=== PATIENT | female | born 1985 | race Two or more races ===

== ENCOUNTER 2019-02-12 20:34 | Emergency (ER) | payer OTHER ==
[2019-02-12] MEDS ORDERED: Ibuprofen 600 MG Tab PO ONE (20:50)
--- NOTE | 2019-02-12 20:50 | EDM.PDOC ---
ED HPI GENERAL MEDICAL PROBLEM - General Chief Complaint: Lower Extremity Injury/Pain Stated Complaint: TOE PAIN ON RIGHT FOOT Time Seen by Provider: 02/12/19 20:39 - History of Present Illness INITIAL COMMENTS - FREE TEXT/NARRATIVE: HISTORY AND PHYSICAL: History of present illness: The patient is a healthy 33-year-old female who presents with complaints of pain at the right great toe after she fell down about 8 stairs and says that she bent her foot backwards. She did not pass out or black out and has no head neck or back pain and has no nausea or vomiting. She complains only of pain at the base of the great toe on the right foot and the other toes are without pain as is the remainder of the foot ankle leg knee and hip. Prior to these events she was in her usual state of good health with no systemic issues. Patient says she has a history of a hysterectomy and is not . She did not take any medications prior to coming here for the pain. The patient says that she thinks that she hit the left side of her face going down the stairs as there are some red redmond there but she has no pain there Review of systems: As per history of present illness and below otherwise all systems reviewed and negative. Past medical history: As per history of present illness and as reviewed below otherwise noncontributory. Surgical history: As per history of present illness and as reviewed below otherwise noncontributory. Social history: No reported history of drug or alcohol abuse. Family history: As per history of present illness and as reviewed below otherwise noncontributory. Physical exam: General: Well-developed well-nourished female who is nontoxic and vital signs are noted by me HEENT: Atraumatic, normocephalic, there are some superficial red redmond on the left side of the patient's face but there is no soft tissue swelling or palpable bony defects or deformities or tenderness of the facial bony architecture, negative for conjunctival pallor or scleral icterus, mucous membranes moist, throat clear, neck supple, nontender, trachea midline. Lungs: Clear to auscultation, breath sounds equal bilaterally, chest nontender. Heart: S1S2, regular rate and rhythm no overt murmurs Abdomen: Soft, nondistended, nontender. NABS Pelvis: Stable nontender. No lateral hip tenderness on the right Genitourinary: Deferred. Rectal: Deferred. Extremities: Atraumatic, and full range of motion of all extremities with the exception of the right foot near the great toe. There is some minimal soft tissue swelling seen at the great toe and at the M TP area with exquisite tenderness on palpation but no ecchymosis crepitus or bony deformities nor is there any malalignment appreciated. The remainder of the toes are nontender as is the proximal metatarsals cuboids talus ankle leg knee and thigh.. Neurovascular unremarkable. Neuro: Awake, alert, oriented. Cranial nerves II through XII unremarkable. Cerebellum unremarkable. Motor and sensory unremarkable throughout. Exam nonfocal. Diagnostics: X-ray right foot attention great toe Therapeutics: Motrin, ice pack, Justino tape toes, ortho boot and crutches Impression: Fracture of right great toe, proximal phalanx Definitive disposition and diagnosis as appropriate pending reevaluation and review of above. Right Toe-Hailux Pain Score (Numeric/FACES): 8 - Related Data Allergies Allergy/AdvReac Type Severity Reaction Status Date / Time Sulfa (Sulfonamide Allergy Anaphylactic Verified 02/12/19 20:43 Antibiotics) Shock Home Meds: Home Meds Trospium [Sanctura] 20 mg PO ACBRK 02/12/19 [History] Review of Systems - Review of Systems Review Of Systems: ROS reveals no pertinent complaints other than HPI. ED EXAM, GENERAL - Physical Exam Exam: See Below (See dictation) Course - Vital Signs Last Recorded V/S: Last Vital Signs Temp 36.7 C 02/12/19 20:44 Pulse 78 02/12/19 21:09 Resp 16 02/12/19 21:09 BP 124/82 02/12/19 21:09 Pulse Ox 99 02/12/19 21:09 - Orders/Labs/Meds Orders: Active Orders 24 hr Category Date Time Status Foot Comp Min 3V Rt [CR] Stat Exams 02/12/19 20:50 Taken DME for Discharge [COMM] Stat Oth 02/12/19 21:16 Ordered Meds: Medications Discontinued Medications Generic Name Dose Route Start Last Admin Trade Name Freq PRN Reason Stop Dose Admin Ibuprofen 600 mg 02/12/19 20:50 02/12/19 21:08 Motrin PO 02/12/19 20:51 600 mg ONETIME ONE Administration Departure - Departure Time of Disposition: 21:19 Disposition: Home, Self-Care 01 Condition: Good Clinical Impression: Fracture of great toe of right foot Qualifiers: Encounter type: initial encounter Fracture type: closed Phalanx: proximal Fracture alignment: nondisplaced Qualified Code(s): S92.414A - Nondisplaced fracture of proximal phalanx of right great toe, initial encounter for closed fracture - Discharge Information Referrals: Juan Sahni MD [Primary Care Provider] - Forms: ED Department Discharge Additional Instructions: The following information is given to patients seen in the emergency department who are being discharged to home. This information is to outline your options for follow-up care. We provide all patients seen in our emergency department with a follow-up referral. The need for follow-up, as well as the timing and circumstances, are variable depending upon the specifics of your emergency department visit. If you don't have a primary care physician on staff, we will provide you with a referral. We always advise you to contact your personal physician following an emergency department visit to inform them of the circumstance of the visit and for follow-up with them and/or the need for any referrals to a consulting specialist. The emergency department will also refer you to a specialist when appropriate. This referral assures that you have the opportunity for followup care with a specialist. All of these measure are taken in an effort to provide you with optimal care, which includes your followup. Under all circumstances we always encourage you to contact your private physician who remains a resource for coordinating your care. When calling for followup care, please make the office aware that this follow-up is from your recent emergency room visit. If for any reason you are refused follow-up, please contact the [facility] emergency department at and ask to speak to the emergency department charge nurse. Dr Ambar Braga [address] [place] [id number] Ice and elevate the area and use [id number] Tylenol and ibuprofen as needed for pain management. You may also use a stronger pain medication you have been prescribed as needed for sleep and when you were at home. Do not weight-bear and use crutches and ortho boot at all times loosening or removing the ortho boot at sleep times. Please connect with our local rough planer tender with resources given to above for further care and evaluation. Return to ER as needed and as discussed - My Orders Last 24 Hours: My Active Orders 02/12/19 20:50 Foot Comp Min 3V Rt [CR] Stat 02/12/19 21:16 DME for Discharge [COMM] Stat - Assessment/Plan Last 24 Hours: My Active Orders 02/12/19 20:50 Foot Comp Min 3V Rt [CR] Stat 02/12/19 21:16 DME for Discharge [COMM] Stat
--- NOTE | 2019-02-12 21:20 | CR ---
INDICATION: Fall, great toe injury TECHNIQUE: Foot radiograph 3 views right COMPARISON: None FINDINGS: Bone: There is nondisplaced oblique fracture present involving both the proximal and distal articular surfaces of the 1st proximal phalanx. Joint: The visualized hindfoot, midfoot, and forefoot joints are unremarkable in appearance. No significant ankle effusion is seen. Soft tissue: Unremarkable. No radiopaque foreign bodies are seen. IMPRESSION: 1. There is nondisplaced oblique fracture present involving both the proximal and distal articular surfaces of the 1st proximal phalanx. Dictated by Leonard Tena MD @ 02/12/2019 9:18:16 PM Dictated by: Leonard Tena MD @ 02/12/2019 21:18:24 (Electronically Signed)
== END 2019-02-12 21:38 | disposition home or self-care (01) ==
LOC: MW.ED 20:34
DX: S92.414A Nondisplaced fracture of proximal phalanx of right great toe, initial encounter for closed fracture (principal); Z88.2 Allergy status to sulfonamides; W10.9XXA Fall (on) (from) unspecified stairs and steps, initial encounter; X50.1XXA Overexertion from prolonged static or awkward postures, initial encounter
CPT/HCPCS: 73630; 99283; A9270

== ENCOUNTER 2019-02-25 06:42 | Day surgery (SDC) | payer OTHER ==
[2019-02-24 10:21] LABS: BLOOD UREA NITROGEN,BUN 13 mg/dL (7.0-18.0); CARBON DIOXIDE,CO2 28.7 mmol/L (21.0-32.0); CHLORIDE,CL 105 mmol/L (98-107); GLUCOSE RANDOM 76 mg/dL (74-106); POTASSIUM,K 4.1 mmol/L (3.5-5.1); SODIUM,NA 140 mmol/L (136-145)
[~2019-02-25 06:42] MED LIST: Sodium Chloride 0.9% 10 ML SDV IV PRN; Sodium Chloride 0.9% 10 ML Syringe FLUSH PRN; Sodium Chloride 0.9% 2.5 ML Syringe FLUSH PRN; ceFAZolin 2 GM in Premix Bag 1 BAG IV ONE
[2019-02-25] MEDS ORDERED: fentaNYL 100 MCG/2 ML SDV ONE (07:19)
[2019-02-25] MEDS ORDERED: Lidocaine 2% 5 ML SDV ONE (07:19)
[2019-02-25] MEDS ORDERED: Propofol 200 MG/20 ML SDV ONE (07:19)
[2019-02-25] MEDS ORDERED: Midazolam 1 MG/ML 2 ML SDV ONE (07:19)
[2019-02-25] MEDS ORDERED: Rocuronium 100 MG/10 ML Syringe ONE (07:20)
[2019-02-25] MEDS: Lactated Ringers 1,000 ML IV SCH ×2 (07:21→11:36)
[2019-02-25] MEDS ORDERED: ceFAZolin/Dextrose,Iso-Osmotic 2 GM/50 ML Duplex Bag IV ONE (07:23)
[2019-02-25] MEDS ORDERED: Scopolamine 1.5 MG Transdermal Patch TRDERM PRN (07:29)
--- NOTE | 2019-02-25 07:29 | PCM.PREANE ---
Preanesthetic Assessment - Anesthesia/Transfusion/Family Hx Anesthesia History: Prior Anesthesia Reaction Other Type of Anesthesia Reaction Comment: only with first - was "treated" after that Family History of Anesthesia Reaction: No Transfusion History: No Prior Transfusion(s) Intubation History: Unknown - Review of Systems General: No Symptoms Pulmonary: No Symptoms Cardiovascular: No Symptoms Gastrointestinal: No Symptoms Neurological: No Symptoms Other: Reports: None - Physical Assessment Vital Signs: Last Vital Signs Temp 36.4 C 02/25/19 07:04 Pulse 77 02/25/19 07:04 Resp 14 02/25/19 07:04 BP 105/68 02/25/19 07:04 Pulse Ox 98 02/25/19 07:04 Height: 5 ft 2 in Weight: 71.668 kg ASA Class: 2 Mental Status: Alert & Oriented x3 Airway Class: Mallampati = 1 Dentition: Reports: Normal Dentition (braces upper and lower), Riviera(s) (x1 upper front) Thyro-Mental Finger Breadths: 3 Mouth Opening Finger Breadths: 3 ROM/Head Extension: Full Lungs: Clear to Auscultation, Normal Respiratory Effort Cardiovascular: Regular Rate, Regular Rhythm - Lab Values: Laboratory Last Values WBC 5.46 K/uL (4.0-11.0) 02/24/19 09:40 RBC 4.18 M/uL (4.30-5.90) L 02/24/19 09:40 Hgb 12.4 g/dL (12.0-16.0) 02/24/19 09:40 Hct 36.9 % (36.0-46.0) 02/24/19 09:40 MCV 88.3 fL (80.0-98.0) 02/24/19 09:40 MCH 29.7 pg (27.0-32.0) 02/24/19 09:40 MCHC 33.6 g/dL (31.0-37.0) 02/24/19 09:40 RDW Std Deviation 40.2 fl (28.0-62.0) 02/24/19 09:40 RDW Coeff of Shelby 13 % (11.0-15.0) 02/24/19 09:40 Plt Count 290 K/uL (150-400) 02/24/19 09:40 MPV 9.50 fL (7.40-12.00) 02/24/19 09:40 Nucleated RBC % 0.0 /100WBC 02/24/19 09:40 Nucleated RBCs # 0 K/uL 02/24/19 09:40 Sodium 140 mmol/L (136-145) 02/24/19 09:40 Potassium 4.1 mmol/L (3.5-5.1) 02/24/19 09:40 Chloride 105 mmol/L (98-107) 02/24/19 09:40 Carbon Dioxide 28.7 mmol/L (21.0-32.0) 02/24/19 09:40 BUN 13 mg/dL (7.0-18.0) 02/24/19 09:40 Creatinine 0.6 mg/dL (0.6-1.0) 02/24/19 09:40 Est Cr Clr Drug Dosing 105.48 mL/min 02/24/19 09:40 Estimated GFR (MDRD) > 60.0 ml/min 02/24/19 09:40 Glucose 76 mg/dL (74-106) 02/24/19 09:40 Calcium 8.4 mg/dL (8.5-10.1) L 02/24/19 09:40 HCG, Qual NEGATIVE (NEG) 02/24/19 09:40 Blood Type O POSITIVE 02/24/19 09:40 Antibody Screen NEGATIVE 02/24/19 09:40 - Allergies Allergies/Adverse Reactions: Allergies Allergy/AdvReac Type Severity Reaction Status Date / Time Sulfa (Sulfonamide Allergy Anaphylactic Verified 02/25/19 07:10 Antibiotics) Shock - Blood Blood Available: No - Anesthesia Plan Pre-Op Medication Ordered: None - Acknowledgements Anesthesia Type Planned: General Anesthesia Pt an Appropriate Candidate for the Planned Anesthesia: Yes Alternatives and Risks of Anesthesia Discussed w Pt/Guardian: Yes Pt/Guardian Understands and Agrees with Anesthesia Plan: Yes PreAnesthesia Questionnaire HEENT History: Reports: Other (See Below) Other HEENT History: has upper and lower dental braces Genitourinary History: Reports: Other (See Below) Other Genitourinary History: has only 1 kidney- congenital CUSTOM STOCK MAKER History: Reports: , Other (See Below) (cystocele) Musculoskeletal History: Reports: Fracture Other Musculoskeletal History: currently has fx right toe and right sprained ankle- is wearing a "boot" Neurological History: Reports: Other (See Below) Other Neuro History: hx of motion sickness Psychiatric History: Reports: Anxiety Other Psychiatric History: states "mild" anxiety- no medication Hematologic History: Reports: Anemia - Infectious Disease History Infectious Disease History: Reports: None - Past Surgical History Head Surgeries/Procedures: Reports: None HEENT Surgical History: Reports: Tonsillectomy GI Surgical History: Reports: Bariatric Procedure Female Surgical History: Reports: Section, LEEP Other Female Surgeries/Procedures: x3 - SUBSTANCE USE Smoking Status *Q: Never Smoker Recreational Drug Use History: No - HOME MEDS Home Medications: Home Meds Calcium Carb, Citrate/Vit D3 [Citracal + D ER] 1 tab PO DAILY 02/22/19 [History] Desogestrel-Ethinyl Estradiol [Juleber 28 Day Tablet] 1 tab PO DAILY 02/22/19 [ History] Iron 65 mg PO BID 02/22/19 [History] Multivit/Iron/Folic Acid/Hb179 [Womens Multivit Hi Potency Tab] 1 tab PO DAILY 02/22/19 [History] - CURRENT (IN HOUSE) MEDS Current Meds: Current Medications Lactated Ringer's (Ringers, Lactated) 1,000 mls @ 125 mls/hr IV ASDIRECTED [facility] Last Admin: 02/25/19 07:21 Dose: 125 mls/hr Sodium Chloride (Saline Flush) 10 ml FLUSH ASDIRECTED PRN PRN Reason: Keep Vein Open Sodium Chloride (Saline Flush) 2.5 ml FLUSH ASDIRECTED PRN PRN Reason: Keep Vein Open Sodium Chloride (Normal Saline) 10 ml IV ASDIRECTED PRN PRN Reason: IV Use Discontinued Medications Cefazolin Sodium/Dextrose (Ancef) Confirm Administered Dose 2 gm IV .STK-MED ONE Stop: 02/25/19 07:24 Fentanyl (Sublimaze) Confirm Administered Dose 100 mcg .ROUTE .STK-MED ONE Stop: 02/25/19 07:20 Cefazolin Sodium/Dextrose 2 gm (/ Premix) 50 mls @ 100 mls/hr IV ONETIME ONE Stop: 02/24/19 09:28 Lidocaine (Xylocaine-Mpf 2%) Confirm Administered Dose 5 ml .ROUTE .STK-MED ONE Stop: 02/25/19 07:20 Midazolam HCl (Versed 1 Mg/Ml) Confirm Administered Dose 2 mg .ROUTE .STK-MED ONE Stop: 02/25/19 07:20 Propofol (Diprivan 20 Ml) Confirm Administered Dose 200 mg .ROUTE .STK-MED ONE Stop: 02/25/19 07:20 Rocuronium [place] (Zemuron) Confirm Administered Dose 100 mg .ROUTE .STK-MED ONE Stop: 02/25/19 07:21
[2019-02-25] MEDS ORDERED: Octyl 2-Cyanoacrylate 1 Tube ONE (07:32)
[2019-02-25] MEDS ORDERED: Fluorescein 5 ML Vial ONE (07:32)
[2019-02-25] MEDS ORDERED: Scopolamine 1.5 MG Transdermal Patch ONE (07:33)
[2019-02-25] MEDS ORDERED: Dexamethasone 4 MG/ML 5 ML MDV ONE (08:22)
[2019-02-25] MEDS ORDERED: Metoclopramide 10 MG/2 ML SDV ONE (08:22)
[2019-02-25] MEDS ORDERED: Ondansetron 4 MG/2 ML SDV ONE (08:22)
[2019-02-25] MEDS ORDERED: HYDROmorphone 2 MG/ML Syringe ONE (08:25)
[2019-02-25] MEDS ORDERED: Meperidine PF 25 MG/ML Syringe IV PRN (08:45)
[2019-02-25] MEDS ORDERED: Promethazine 25 MG/ML SDV IM PRN ×2 (08:46→10:10)
[2019-02-25] MEDS ORDERED: fentaNYL 100 MCG/2 ML SDV IVPUSH PRN (08:46)
[2019-02-25] MEDS ORDERED: Glycopyrrolate 0.2 MG/ML SDV ONE (09:10)
[2019-02-25] MEDS ORDERED: Neostigmine Methylsulfate 1 MG/ML 5 ML Syringe ONE (09:10)
[2019-02-25] MEDS ORDERED: Belladonna Alkaloids/Opium 16.2-30 MG Supp RECTAL PRN (09:38)
[2019-02-25] MEDS ORDERED: Ketorolac 30 MG/ML SDV ONE (10:03)
[2019-02-25] MEDS ORDERED: Ondansetron 4 MG/2 ML SDV IVPUSH PRN (10:10)
[2019-02-25] MEDS ORDERED: Morphine 4 MG/ML Syringe IVPUSH PRN (10:10)
[2019-02-25] MEDS ORDERED: Acetaminophen/oxyCODONE 325-5 MG Tab PO PRN ×2 (10:10)
[2019-02-25] MEDS ORDERED: Ketorolac 30 MG/ML SDV IVPUSH ONE (10:10)
--- NOTE | 2019-02-25 10:15 | PCM.OPNOTE ---
- General Post-Op/Procedure Note Date of Surgery/Procedure: 02/25/19 Operative Procedure(s): TLH,blaespinoza sa. engectomy and Cystoscopy. Pre Op Diagnosis: bleeding Post-Op Diagnosis: Same Anesthesia Technique: General ET Tube Primary Surgeon: Luis Vargas EBL in mLs: 100 Complications: None Condition: Good
--- NOTE | 2019-02-25 10:48 | PCM.PNPP ---
- General Info Date of Service: 02/25/19 Functional Status: Reports: Pain Controlled - Review of Systems General: Reports: No Symptoms HEENT: Reports: No Symptoms Pulmonary: Reports: No Symptoms Cardiovascular: Reports: No Symptoms Gastrointestinal: Reports: No Symptoms Genitourinary: Reports: No Symptoms Musculoskeletal: Reports: No Symptoms Skin: Reports: No Symptoms Neurological: Reports: No Symptoms Psychiatric: Reports: No Symptoms - General Info Date of Service: 02/25/19 - Patient Data Vital Signs - Most Recent: Last Vital Signs Temp 36 C 02/25/19 10:22 Pulse 89 02/25/19 10:37 Resp 10 L 02/25/19 10:37 BP 117/61 02/25/19 10:37 Pulse Ox 100 02/25/19 10:37 Weight - Most Recent: 71.668 kg I&O - Last 24 Hours: Intake & Output 02/24/19 02/25/19 02/25/19 22:59 06:59 14:59 Output Total 400 Balance -400 Med Orders - Current: Current Medications Belladonna Alkaloids/Opium (B & O Supprettes No. 15a) 1 supp RECTAL ONETIME PRN PRN Reason: Pain Fentanyl (Sublimaze) 50 - 100 mcg IVPUSH Q5M PRN PRN Reason: Pain Stop: 02/25/19 11:47 Last Admin: 02/25/19 10:45 Dose: 50 mcg Lactated Ringer's (Ringers, Lactated) 1,000 mls @ 125 mls/hr IV ASDIRECTED [facility] Last Admin: 02/25/19 07:21 Dose: 125 mls/hr Ketorolac Tromethamine (Toradol) 30 mg IVPUSH Q6H PRN PRN Reason: Pain (severe 7-10) Stop: 03/02/19 10:10 Meperidine HCl (Demerol) 12.5 - 25 mg IV ONETIME PRN PRN Reason: Shivering Stop: 02/25/19 11:46 Morphine Sulfate (Morphine) 4 mg IVPUSH Q2H PRN PRN Reason: Pain (severe 7-10) Ondansetron HCl (Zofran) 4 mg IVPUSH Q6H PRN PRN Reason: Nausea/Vomiting Oxycodone/Acetaminophen (Percocet 325-5 Mg) 1 tab PO Q4H PRN PRN Reason: Pain (moderate 4-6) Oxycodone/Acetaminophen (Percocet 325-5 Mg) 2 tab PO Q4H PRN PRN Reason: Pain (moderate 4-6) Promethazine HCl (Phenergan) 12.5 mg IM ONETIME PRN PRN Reason: Nausea Promethazine HCl (Phenergan) 25 mg IM Q6H PRN PRN Reason: Nausea/Vomiting Scopolamine (Transderm-Scop) 1.5 mg TRDERM Q72H PRN PRN Reason: Nausea Last Admin: 02/25/19 07:37 Dose: 1.5 mg Sodium Chloride (Saline Flush) 10 ml FLUSH ASDIRECTED PRN PRN Reason: Keep Vein Open Sodium Chloride (Saline Flush) 2.5 ml FLUSH ASDIRECTED PRN PRN Reason: Keep Vein Open Sodium Chloride (Normal Saline) 10 ml IV ASDIRECTED PRN PRN Reason: IV Use Discontinued Medications Cefazolin Sodium/Dextrose (Ancef) Confirm Administered Dose 2 gm IV .STK-MED ONE Stop: 02/25/19 07:24 Dexamethasone (Dexamethasone) Confirm Administered Dose 20 mg .ROUTE .STK-MED ONE Stop: 02/25/19 08:23 Fentanyl (Sublimaze) Confirm Administered Dose 100 mcg .ROUTE .STK-MED ONE Stop: 02/25/19 07:20 Fluorescein Sodium (Ak-Fluor) Confirm Administered Dose 5 ml .ROUTE .STK-MED ONE Stop: 02/25/19 07:33 Glycopyrrolate (Robinul) Confirm Administered Dose 0.4 mg .ROUTE .STK-MED ONE Stop: 02/25/19 09:11 Hydromorphone HCl (Dilaudid) Confirm Administered Dose 2 mg .ROUTE .STK-MED ONE Stop: 02/25/19 08:26 Cefazolin Sodium/Dextrose 2 gm (/ Premix) 50 mls @ 100 mls/hr IV ONETIME ONE Stop: 02/24/19 09:28 Ketorolac Tromethamine (Toradol) Confirm Administered Dose 30 mg .ROUTE .STK- MED ONE Stop: 02/25/19 10:04 Ketorolac Tromethamine (Toradol) 30 mg IVPUSH ONETIME ONE Stop: 02/25/19 10:11 Lidocaine (Xylocaine-Mpf 2%) Confirm Administered Dose 5 ml .ROUTE .STK-MED ONE Stop: 02/25/19 07:20 Metoclopramide HCl (Reglan) Confirm Administered Dose 10 mg .ROUTE .STK-MED ONE Stop: 02/25/19 08:23 Midazolam HCl (Versed 1 Mg/Ml) Confirm Administered Dose 2 mg .ROUTE .STK-MED ONE Stop: 02/25/19 07:20 Neostigmine Methylsulfate (Neostigmine) Confirm Administered Dose 5 mg .ROUTE .STK-MED ONE Stop: 02/25/19 09:11 Octyl Cyanoacrylate (Dermabond Advance) Confirm Administered Dose 1 applic .ROUTE .STK-MED ONE Stop: 02/25/19 07:33 Ondansetron HCl (Zofran) Confirm Administered Dose 4 mg .ROUTE .STK-MED ONE Stop: 02/25/19 08:23 Propofol (Diprivan 20 Ml) Confirm Administered Dose 200 mg .ROUTE .STK-MED ONE Stop: 02/25/19 07:20 Rocuronium [place] (Zemuron) Confirm Administered Dose 100 mg .ROUTE .STK-MED ONE Stop: 02/25/19 07:21 Scopolamine (Transderm-Scop) Confirm Administered Dose 1.5 mg .ROUTE .STK-MED ONE Stop: 02/25/19 07:34 - Interaction Disposition, : in Room with Family Interaction: Holding Feeding: Attempted ; Nursed Fair/Poor - Exam General: Alert, Oriented HEENT: Pupils Equal Neck: Supple Lungs: Clear to Auscultation, Normal Respiratory Effort Cardiovascular: Regular Rate, Regular Rhythm GI/Abdominal Exam: Normal Bowel Sounds, Soft, Non-Tender, No Organomegaly, No Distention, No Abnormal Bruit, No Mass, Pelvis Stable Extremities: Normal Inspection, Normal Range of Motion, Non-Tender, No Pedal Edema, Normal Capillary Refill Skin: Warm, Dry, Intact Wound/Incisions: Healing Well Neurological: No New Focal Deficit Psy/Mental Status: Alert, Normal Affect, Normal Mood - Problem List Review Problem List Initiated/Reviewed/Updated: Yes - My Orders Last 24 Hours: My Active Orders 02/24/19 Dinner Nothing per Oral Now Diet [DIET] 02/25/19 10:10 Patient Status [ADT] Routine Notify Provider Vital Signs [RC] ASDIRECTED Oxygen Therapy [RC] ASDIRECTED RT Incentive Spirometry [RC] Q2HWA Up With Assistance [RC] PER UNIT ROUTINE Up ad Kelsey [RC] PER UNIT ROUTINE Urinary Catheter Removal [RC] Per Unit Routine Vital Signs [RC] PER UNIT ROUTINE Acetaminophen/oxyCODONE [Percocet 325-5 MG] 1 tab PO Q4H PRN Acetaminophen/oxyCODONE [Percocet 325-5 MG] 2 tab PO Q4H PRN Ketorolac [Toradol] 30 mg IVPUSH Q6H PRN Morphine 4 mg IVPUSH Q2H PRN Ondansetron [Zofran] 4 mg IVPUSH Q6H PRN Promethazine [Phenergan] 25 mg IM Q6H PRN Peripheral IV Discontinue [OM.PC] Routine Sequential Compression Device [OM.PC] Per Unit Routine Resuscitation Status Routine 02/25/19 10:11 Antiembolic Devices [RC] PER UNIT ROUTINE 02/25/19 Lunch Regular Diet [DIET] 02/26/19 05:11 BASIC METABOLIC PANEL,BMP [CHEM] AM CBC WITH AUTO DIFF [HEME] AM - Assessment Assessment:: S/P doing well. - Plan Plan:: send home today.
--- NOTE | 2019-02-25 10:52 | PCM.POSTAN ---
POST ANESTHESIA ASSESSMENT - MENTAL STATUS Mental Status: Alert, Oriented - VITAL SIGNS Vital Signs: Last Vital Signs Temp 36 C 02/25/19 10:22 Pulse 83 02/25/19 10:47 Resp 10 L 02/25/19 10:47 BP 114/78 02/25/19 10:47 Pulse Ox 99 02/25/19 10:47 - RESPIRATORY Respiratory Status: Respiratory Rate WNL, Airway Patent, O2 Saturation Stable - CARDIOVASCULAR CV Status: Pulse Rate WNL, Blood Pressure Stable - GASTROINTESTINAL GI Status: No Symptoms - PAIN Pain Score: 3 - POST OP HYDRATION Hydration Status: Adequate & Stable
--- NOTE | 2019-02-25 13:23 | OR ---
SURGEON: Luis Vargas MD DATE OF PROCEDURE: PREOPERATIVE DIAGNOSES: Menometrorrhagia and pelvic pain. POSTOPERATIVE DIAGNOSES: Menometrorrhagia and pelvic pain. OPERATIONS PERFORMED: Total laparoscopic hysterectomy, laparoscopic bilateral salpingectomy preserving both ovaries, and cystoscopy. PRIMARY SURGEON: Luis Vargas MD. ANESTHESIOLOGY FACULTY: OR tech. ANESTHESIA: General endotracheal intubation, Saloni Gracia and Dr. Rodriguez. ESTIMATED BLOOD LOSS: 100 mL. COMPLICATIONS: None. FINDINGS: Uterus is about 10- to 11-week size. Both ovaries essentially are normal. INDICATIONS FOR SURGERY: The reader referred to the admit note. PROCEDURE IN DETAIL: The patient was brought to the OR, properly identified. After adequate level of anesthesia, the patient was placed in lithotomy position, prepped and draped in sterile fashion as usual. Weighted speculum was placed in vagina and Cox catheter placed in the bladder for drainage and 3.5 size manipulator placed in the uterus for manipulation and then the operation shifted abdominally. Stab wound done beneath the umbilicus. The Veress needle was placed in the peritoneal cavity and that cavity insufflated with 6 L of carbon dioxide, and then the utilizing the Visiport technique, the 5 mm trocar placed infraumbilically under direct vision. A 10/12 trocar placed in the left iliac fossa and 5 mm trocar in the right iliac fossa. There were a few adhesions with the anterior abdominal wall from her previous section and that was taken down by the Harmonic scalpel without any problem. Then, the operation started by identifying the landmark of the pelvis and then the superior pedicle was coagulated and transected using the Mamadou Harmonic scalpel. The tubes included with the specimen. Both ovaries preserved. Anteriorly, the round ligament was coagulated, done in the same way, and then the anterior leaf of the broad ligament dissected downward medially detaching and the bladder completely from the operative field until the surgeon could feel the manipulator through the vaginal wall clearly. Then, the uterine vessel at the level of the manipulator coagulated and transected with the Harmonic scalpel. Next, using the Harmonic scalpel, a circular incision in the vaginal mucosa was done detaching the cervix from its attachment to the vagina. The uterus, cervix, both the ovaries were removed vaginally. Pneumoperitoneum re-established by placing vaginal pack in the vagina and then thorough irrigation of the pelvis was done. The inspection of all the pedicles was done and there were a few areas of oozing from the vaginal wall and the side of the vagina and this picked individually and the bleeding stopped by judicious use of the bipolar electrocautery. Next step, the vaginal cuff was closed laparoscopically using 2- 0 PDS interrupted sutures. While we were doing that, we asked Anesthesia to give the patient fluorescein and then cystoscopy was performed. The bladder was intact and the left ureter was visible with the dye coming from it. The right side, the patient is known to have a nonfunctioning right kidney, so there was no dye visualized on the right side. Satisfied with these findings, the procedure ended. The instrument and sponge count was correct. After closing the laparoscopic incision layer, the instrument count was correct. The patient tolerated the procedure well, went to recovery room in stable general condition. PORSHA MCKINNEY /[id number]
--- NOTE | 2019-02-25 13:30 | PCM48HPAN ---
Post Anesthesia Note - EVALUATION WITHIN 48HRS OF ANESTHETIC Vital Signs in Normal Range: Yes Patient Participated in Evaluation: Yes Respiratory Function Stable: Yes Airway Patent: Yes Cardiovascular Function Stable: Yes Hydration Status Stable: Yes Pain Control Satisfactory: Yes Nausea and Vomiting Control Satisfactory: Yes Mental Status Recovered: Yes Vital Signs: Last Vital Signs Temp 36.0 C 02/25/19 11:00 Pulse 67 02/25/19 12:30 Resp 12 02/25/19 12:30 BP 111/71 02/25/19 12:30 Pulse Ox 94 L 02/25/19 12:30
[2019-02-25] MEDS: Ketorolac 30 MG/ML SDV IVPUSH PRN ×2 (15:47→22:08)
[2019-02-26 06:33] LABS: BLOOD UREA NITROGEN,BUN 14 mg/dL (7.0-18.0); CARBON DIOXIDE,CO2 26.4 mmol/L (21.0-32.0); CHLORIDE,CL 106 mmol/L (98-107); GLUCOSE RANDOM 89 mg/dL (74-106); POTASSIUM,K 3.8 mmol/L (3.5-5.1); SODIUM,NA 139 mmol/L (136-145)
[2019-02-26] MEDS: Ketorolac 30 MG/ML SDV IVPUSH PRN (07:27)
--- NOTE | 2019-02-26 08:02 | PCM48HPAN ---
Post Anesthesia Note - EVALUATION WITHIN 48HRS OF ANESTHETIC Vital Signs in Normal Range: Yes Patient Participated in Evaluation: Yes Respiratory Function Stable: Yes Airway Patent: Yes Cardiovascular Function Stable: Yes Hydration Status Stable: Yes Pain Control Satisfactory: Yes (only having pain with getting out of bed) Nausea and Vomiting Control Satisfactory: Yes Mental Status Recovered: Yes Vital Signs: Last Vital Signs Temp 37.1 C 02/26/19 07:30 Pulse 64 02/26/19 07:30 Resp 18 02/26/19 07:30 BP 101/62 02/26/19 07:30 Pulse Ox 99 02/26/19 07:30
--- NOTE | 2019-02-26 09:20 | PCM.SURGPN ---
- General Info Date of Service: 02/26/19 POD#: 1 Functional Status: Reports: Pain Controlled - Review of Systems General: Reports: No Symptoms HEENT: Reports: No Symptoms Pulmonary: Reports: No Symptoms Cardiovascular: Reports: No Symptoms Gastrointestinal: Reports: No Symptoms Genitourinary: Reports: No Symptoms Musculoskeletal: Reports: No Symptoms Skin: Reports: No Symptoms Neurological: Reports: No Symptoms Psychiatric: Reports: No Symptoms - Patient Data Vitals - Most Recent: Last Vital Signs Temp 37.1 C 02/26/19 07:30 Pulse 64 02/26/19 07:30 Resp 18 02/26/19 07:30 BP 101/62 02/26/19 07:30 Pulse Ox 99 02/26/19 07:30 Weight - Most Recent: 71.668 kg I&O - Last 24 Hours: Intake & Output 02/25/19 02/26/19 02/26/19 22:59 06:59 14:59 Intake Total 780 2200 Output Total 400 400 Balance 380 1800 Lab Results Last 24 Hrs: Laboratory Results - last 24 hr 02/26/19 02/26/19 Range/Units 05:37 05:37 WBC 9.29 (4.0-11.0) K/uL RBC 3.55 L (4.30-5.90) M/uL Hgb 10.2 L (12.0-16.0) g/dL Hct 30.9 L (36.0-46.0) % MCV 87.0 (80.0-98.0) fL MCH 28.7 (27.0-32.0) pg MCHC 33.0 (31.0-37.0) g/dL RDW Std Deviation 40.0 (28.0-62.0) fl RDW Coeff of [place] 12 (11.0-15.0) % Plt Count 270 (150-400) K/uL MPV 9.40 (7.40-12.00) fL Neut % (Auto) 61.8 (48.0-80.0) % Lymph % (Auto) 28.5 (16.0-40.0) % Johnson % (Auto) 8.1 (0.0-15.0) % Eos % (Auto) 1.2 (0.0-7.0) % Baso % (Auto) 0.4 (0.0-1.5) % Neut # (Auto) 5.7 (1.4-5.7) K/uL Lymph # (Auto) 2.7 H (0.6-2.4) K/uL Johnson # (Auto) 0.8 (0.0-0.8) K/uL Eos # (Auto) 0.1 (0.0-0.7) K/uL Baso # (Auto) 0.0 (0.0-0.1) K/uL Nucleated RBC % 0.0 /100WBC Nucleated RBCs # 0 K/uL Sodium 139 (136-145) mmol/L Potassium 3.8 (3.5-5.1) mmol/L Chloride 106 (98-107) mmol/L Carbon Dioxide 26.4 (21.0-32.0) mmol/L BUN 14 (7.0-18.0) mg/dL Creatinine 0.7 (0.6-1.0) mg/dL Est Cr Clr Drug Dosing 90.41 mL/min Estimated GFR (MDRD) > 60.0 ml/min Glucose 89 (74-106) mg/dL Calcium 8.4 L (8.5-10.1) mg/dL Med Orders - Current: Current Medications Belladonna Alkaloids/Opium (B & O Supprettes No. 15a) 1 supp RECTAL ONETIME PRN PRN Reason: Pain Last Admin: 02/25/19 16:13 Dose: 1 supp Lactated Ringer's (Ringers, Lactated) 1,000 mls @ 125 mls/hr IV ASDIRECTED [facility] Last Admin: 02/25/19 11:36 Dose: 125 mls/hr Ketorolac Tromethamine (Toradol) 30 mg IVPUSH Q6H PRN PRN Reason: Pain (severe 7-10) Stop: 03/02/19 10:10 Last Admin: 02/26/19 07:27 Dose: 30 mg Morphine Sulfate (Morphine) 4 mg IVPUSH Q2H PRN PRN Reason: Pain (severe 7-10) Ondansetron HCl (Zofran) 4 mg IVPUSH Q6H PRN PRN Reason: Nausea/Vomiting Last Admin: 02/25/19 15:48 Dose: 4 mg Oxycodone/Acetaminophen (Percocet 325-5 Mg) 1 tab PO Q4H PRN PRN Reason: Pain (moderate 4-6) Oxycodone/Acetaminophen (Percocet 325-5 Mg) 2 tab PO Q4H PRN PRN Reason: Pain (moderate 4-6) Promethazine HCl (Phenergan) 25 mg IM Q6H PRN PRN Reason: Nausea/Vomiting Scopolamine (Transderm-Scop) 1.5 mg TRDERM Q72H PRN PRN Reason: Nausea Last Admin: 02/25/19 07:37 Dose: 1.5 mg Sodium Chloride (Saline Flush) 10 ml FLUSH ASDIRECTED PRN PRN Reason: Keep Vein Open Sodium Chloride (Saline Flush) 2.5 ml FLUSH ASDIRECTED PRN PRN Reason: Keep Vein Open Sodium Chloride (Normal Saline) 10 ml IV ASDIRECTED PRN PRN Reason: IV Use Discontinued Medications Cefazolin Sodium/Dextrose (Ancef) Confirm Administered Dose 2 gm IV .STK-MED ONE Stop: 02/25/19 07:24 Dexamethasone (Dexamethasone) Confirm Administered Dose 20 mg .ROUTE .STK-MED ONE Stop: 02/25/19 08:23 Fentanyl (Sublimaze) Confirm Administered Dose 100 mcg .ROUTE .STK-MED ONE Stop: 02/25/19 07:20 Fentanyl (Sublimaze) 50 - 100 mcg IVPUSH Q5M PRN PRN Reason: Pain Stop: 02/25/19 11:47 Last Admin: 02/25/19 10:45 Dose: 50 mcg Fluorescein Sodium (Ak-Fluor) Confirm Administered Dose 5 ml .ROUTE .STK-MED ONE Stop: 02/25/19 07:33 Glycopyrrolate (Robinul) Confirm Administered Dose 0.4 mg .ROUTE .STK-MED ONE Stop: 02/25/19 09:11 Hydromorphone HCl (Dilaudid) Confirm Administered Dose 2 mg .ROUTE .STK-MED ONE Stop: 02/25/19 08:26 Cefazolin Sodium/Dextrose 2 gm (/ Premix) 50 mls @ 100 mls/hr IV ONETIME ONE Stop: 02/24/19 09:28 Last Admin: 02/25/19 11:04 Dose: Not Given Ketorolac Tromethamine (Toradol) Confirm Administered Dose 30 mg .ROUTE .STK- MED ONE Stop: 02/25/19 10:04 Ketorolac Tromethamine (Toradol) 30 mg IVPUSH ONETIME ONE Stop: 02/25/19 10:11 Last Admin: 02/25/19 11:19 Dose: Not Given Lidocaine (Xylocaine-Mpf 2%) Confirm Administered Dose 5 ml .ROUTE .STK-MED ONE Stop: 02/25/19 07:20 Meperidine HCl (Demerol) 12.5 - 25 mg IV ONETIME PRN PRN Reason: Shivering Stop: 02/25/19 11:46 Metoclopramide HCl (Reglan) Confirm Administered Dose 10 mg .ROUTE .STK-MED ONE Stop: 02/25/19 08:23 Midazolam HCl (Versed 1 Mg/Ml) Confirm Administered Dose 2 mg .ROUTE .STK-MED ONE Stop: 02/25/19 07:20 Neostigmine Methylsulfate (Neostigmine) Confirm Administered Dose 5 mg .ROUTE .STK-MED ONE Stop: 02/25/19 09:11 Octyl Cyanoacrylate (Dermabond Advance) Confirm Administered Dose 1 applic .ROUTE .STK-MED ONE Stop: 02/25/19 07:33 Ondansetron HCl (Zofran) Confirm Administered Dose 4 mg .ROUTE .STK-MED ONE Stop: 02/25/19 08:23 Promethazine HCl (Phenergan) 12.5 mg IM ONETIME PRN PRN Reason: Nausea Propofol (Diprivan 20 Ml) Confirm Administered Dose 200 mg .ROUTE .STK-MED ONE Stop: 02/25/19 07:20 Rocuronium [place] (Zemuron) Confirm Administered Dose 100 mg .ROUTE .STK-MED ONE Stop: 02/25/19 07:21 Scopolamine (Transderm-Scop) Confirm Administered Dose 1.5 mg .ROUTE .STK-MED ONE Stop: 02/25/19 07:34 Last Admin: 02/25/19 11:04 Dose: Not Given - Exam Wound/Incisions: Healing Well General: Alert, Oriented HEENT: Pupils Equal Neck: Supple Lungs: Clear to Auscultation, Normal Respiratory Effort Cardiovascular: Regular Rate, Regular Rhythm GI/Abdominal Exam: Normal Bowel Sounds, Soft, Non-Tender, No Organomegaly, No Distention, No Abnormal Bruit, No Mass, Pelvis Stable Extremities: Normal Inspection, Normal Range of Motion, Non-Tender, No Pedal Edema, Normal Capillary Refill Skin: Warm, Dry, Intact Neurological: No New Focal Deficit Psy/Mental Status: Alert, Normal Affect, Normal Mood - Problem List Review Problem List Initiated/Reviewed/Updated: Yes - My Orders Last 24 Hours: Active Orders 24 hr Category Date Time Status Patient Status [ADT] Routine ADT 02/25/19 10:10 Active Antiembolic Devices [RC] PER UNIT ROUTINE Care 02/25/19 10:11 Active Notify Provider Vital Signs [RC] ASDIRECTED Care 02/25/19 10:10 Active Oxygen Therapy [RC] ASDIRECTED Care 02/25/19 10:10 Active RT Incentive Spirometry [RC] Q2HWA Care 02/25/19 10:10 Active Ready for Discharge [RC] PER UNIT ROUTINE Care 02/25/19 10:50 Active Up With Assistance [RC] PER UNIT ROUTINE Care 02/25/19 10:10 Active Up ad Kelsey [RC] PER UNIT ROUTINE Care 02/25/19 10:10 Active Vital Signs [RC] Q4H Care 02/25/19 10:10 Active Regular Diet [DIET] Diet 02/25/19 Lunch Active Acetaminophen/oxyCODONE [Percocet 325-5 MG] Med 02/25/19 10:10 Active 1 tab PO Q4H PRN Acetaminophen/oxyCODONE [Percocet 325-5 MG] Med 02/25/19 10:10 Active 2 tab PO Q4H PRN Belladonna/Opium [B & O Supprettes No. 15A] Med 02/25/19 09:38 Active 1 supp RECTAL ONETIME PRN Ketorolac [Toradol] Med 02/25/19 10:10 Active 30 mg IVPUSH Q6H PRN Morphine Med 02/25/19 10:10 Active 4 mg IVPUSH Q2H PRN Ondansetron [Zofran] Med 02/25/19 10:10 Active 4 mg IVPUSH Q6H PRN Promethazine [Phenergan] Med 02/25/19 10:10 Active 25 mg IM Q6H PRN Peripheral IV Discontinue [OM.PC] Routine Oth 02/25/19 10:10 Ordered Sequential Compression Device [OM.PC] Per Unit Routine Oth 02/25/19 10:10 Ordered Resuscitation Status Routine Resus Stat 11/21/19 10:10 Ordered Medication Orders Belladonna Alkaloids/Opium (B & O Supprettes No. 15a) 1 supp RECTAL ONETIME PRN PRN Reason: Pain Last Admin: 02/25/19 16:13 Dose: 1 supp Lactated Ringer's (Ringers, Lactated) 1,000 mls @ 125 mls/hr IV ASDIRECTED [facility] Last Admin: 02/25/19 11:36 Dose: 125 mls/hr Infusion: 02/25/19 11:36 Dose: 125 mls/hr Admin: 02/25/19 07:21 Dose: 125 mls/hr Ketorolac Tromethamine (Toradol) 30 mg IVPUSH Q6H PRN PRN Reason: Pain (severe 7-10) Stop: 03/02/19 10:10 Last Admin: 02/26/19 07:27 Dose: 30 mg Admin: 02/25/19 22:08 Dose: 30 mg Admin: 02/25/19 15:47 Dose: 30 mg Morphine Sulfate (Morphine) 4 mg IVPUSH Q2H PRN PRN Reason: Pain (severe 7-10) Ondansetron HCl (Zofran) 4 mg IVPUSH Q6H PRN PRN Reason: Nausea/Vomiting Last Admin: 02/25/19 15:48 Dose: 4 mg Oxycodone/Acetaminophen (Percocet 325-5 Mg) 1 tab PO Q4H PRN PRN Reason: Pain (moderate 4-6) Oxycodone/Acetaminophen (Percocet 325-5 Mg) 2 tab PO Q4H PRN PRN Reason: Pain (moderate 4-6) Promethazine HCl (Phenergan) 25 mg IM Q6H PRN PRN Reason: Nausea/Vomiting Scopolamine (Transderm-Scop) 1.5 mg TRDERM Q72H PRN PRN Reason: Nausea Last Admin: 02/25/19 07:37 Dose: 1.5 mg Sodium Chloride (Saline Flush) 10 ml FLUSH ASDIRECTED PRN PRN Reason: Keep Vein Open Sodium Chloride (Saline Flush) 2.5 ml FLUSH ASDIRECTED PRN PRN Reason: Keep Vein Open Sodium Chloride (Normal Saline) 10 ml IV ASDIRECTED PRN PRN Reason: IV Use - Assessment Assessment (Free Text/Narrative):: Status post hysterectomy patient is doing well ambulatory on regular diet no problem - Plan Plan (Free Text/Narrative):: Patient to be sent home today the postvasectomy instruction is given to the patient the patient given a prescription of [place] 5/325 for postoperative pain at home and she have an appointment to come and see me in one week there is no restriction on her diet
== END 2019-02-26 10:00 | disposition home or self-care (01) ==
LOC: MW.SDS 06:42 → MW.MS 10:33 → MW.SDS 02-26 10:00
PROVIDERS: ATTEND Obstetrics & Gynecology
DX: D25.9 Leiomyoma of uterus, unspecified (principal); Z88.2 Allergy status to sulfonamides; Z79.899 Other long term (current) drug therapy
CPT/HCPCS: 36415; 58571; 80048; 84703; 85025; 85027; 86850; 86900; 86901; A9270; J0690; J1100; J1170; J1885; J2001; J2250; J2405; J2704; J2765; J3010; J3490; J7120